=== PATIENT | male | born 1975 | race Caucasian/White ===

== ENCOUNTER 2016-12-30 14:58 | Emergency (ER) | payer BC ==
--- NOTE | 2016-12-30 15:03 | ED.PDOC ---
History of Present Illness - General Chief Complaint: Laceration Stated Complaint: laceration Time Seen by Provider: 12/30/16 15:02 Source: patient Exam Limitations: no limitations - History of Present Illness Initial Comments: Sergio Berger 41 y/o male stated has a cut on his right hand after getting in contact with sharp edge of machine that he was working on.Stated happened at work. Occurred: just prior to arrival Pain - Upper Extremity: moderate: Hand, right Method of Injury: other - laceration Improving Factors: nothing Worsening Factors: movement Allergies/Adverse Reactions: Allergies NO KNOWN ALLERGY Allergy (Verified 12/30/16 15:42) Review of Systems - Review of Systems Constitutional: States: no symptoms reported EENTM: States: no symptoms reported Skin: States: see HPI Past Medical History (General) - Patient Medical History Hx Other PMH: Yes - basal cell CA left ear Surgical History: other - excision basal cell ca Family Medical History - Family History Mother Family History: No Known Physical Exam - Physical Exam General Appearance: Alert, No apparent distress Eyes, Ears, Nose, Throat Exam: normal ENT inspection Neck: full range of motion, supple Cardiovascular/Respiratory: regular rate, rhythm, normal peripheral pulses Back Exam: no vertebral tenderness Elbow/Forearm Exam: no evidence of injury Wrist Exam: no evidence of injury Hand Exam: laceration - 1 .5 cm dorsal aspect hand right Neuro/Tendon: normal sensation, normal motor functions, normal tendon functions Mental Status: alert, oriented x 3 Skin Exam: normal color, warm/dry Progress - Progress Progress: 12/30/16 15:51 Last Vital Signs Temp 98.3 F 12/30/16 15:00 Pulse 127 H 12/30/16 15:00 Resp 18 12/30/16 15:00 BP 166/105 12/30/16 15:00 Pulse Ox 96 12/30/16 15:00 Procedures - Laceration/Wound Repair Right Hand Wound Length (cm): 1.5 - gaping/bleeding Wound's Depth, Shape: linear Wound Explored: no foreign body removed Irrigated w/ Saline (cc's): 30 Betadine Prep?: Yes Anesthesia: 1% Lidocaine Volume Anesthetic (cc's): 5 Wound Repaired With: sutures Suture Size/Type: 4:0, prolene Number of Sutures: 3 Layer Closure?: No Sterile Dressing Applied?: Yes Departure - Departure Clinical Impression: Laceration of hand Qualifiers: Encounter type: initial encounter Foreign body presence: without foreign body Laterality: right Qualified Code(s): S61.411A - Laceration without foreign body of right hand, initial encounter Time of Disposition: 15:53 Disposition: Discharge to Home or Self Care Condition: Good Departure Forms: ED Discharge - Pt. Copy, Patient Portal Self Enrollment Instructions: DI for Laceration Repair, How to Care for a Laceration After Repair Additional Instructions: May take Aleve (over the counter )one tablet 3 x a day as needed for pain; Removal of sutures 01/10/2017 by primary md.
[2016-12-30] MEDS ORDERED: TETANUS,DIPHTHERIA,PERTUSSIS 1 EA SYG IM ONE (15:24)
[2016-12-30] MEDS ORDERED: LIDOCAINE 1% 10 ML VIAL INJ ONE (15:26)
[2016-12-30] MEDS ORDERED: NEOMYCIN-BACITRACIN-POLYMYXIN 0.9 GM UD TOP ONE (15:39)
[2016-12-30 15:50] VITALS: TEMP 98.3; O2SAT 96
[2016-12-30 16:32] VITALS: BP 152/98
== END 2016-12-30 16:40 | disposition home or self-care (01) ==
LOC: ER 14:58
DX: S61.411A Laceration without foreign body of right hand, initial encounter (principal); Z23 Encounter for immunization; W45.8XXA Other foreign body or object entering through skin, initial encounter; Y92.89 Other specified places as the place of occurrence of the external cause; Y99.0 Civilian activity done for income or pay